=== PATIENT | male | born 1965 | race Caucasian/White ===

== ENCOUNTER 2016-11-30 21:47 | Emergency (ER) | payer OTHER | END 2016-11-30 22:32 | disposition home or self-care (01) | LOC: D.ER 21:47 | DX: K04.7 Periapical abscess without sinus (principal); K08.89 Other specified disorders of teeth and supporting structures; E11.9 Type 2 diabetes mellitus without complications; R68.84 Jaw pain ==

== ENCOUNTER 2017-02-06 06:56 | Emergency (ER) | payer OTHER | END 2017-02-06 08:58 | disposition home or self-care (01) | LOC: D.ER 06:56 | DX: J40 Bronchitis, not specified as acute or chronic (principal); E11.9 Type 2 diabetes mellitus without complications ==

== ENCOUNTER 2017-03-11 11:13 | Emergency (ER) | payer OTHER | END 2017-03-11 11:57 | disposition home or self-care (01) | LOC: D.ER 11:13 | DX: F41.9 Anxiety disorder, unspecified (principal); E11.9 Type 2 diabetes mellitus without complications; I10 Essential (primary) hypertension; F17.200 Nicotine dependence, unspecified, uncomplicated ==

== ENCOUNTER 2017-07-22 15:29 | Emergency (ER) | payer OTHER | END 2017-07-22 16:50 | disposition home or self-care (01) | LOC: D.ER 15:29 | DX: K04.7 Periapical abscess without sinus (principal); K08.89 Other specified disorders of teeth and supporting structures; F17.200 Nicotine dependence, unspecified, uncomplicated ==

== ENCOUNTER 2017-09-19 20:23 | Emergency (ER) | payer OTHER | END 2017-09-19 23:04 | disposition home or self-care (01) | LOC: D.ER 20:23 | DX: J01.90 Acute sinusitis, unspecified (principal); E11.9 Type 2 diabetes mellitus without complications; I10 Essential (primary) hypertension; F17.200 Nicotine dependence, unspecified, uncomplicated ==

== ENCOUNTER 2018-01-24 19:41 | Emergency (ER) | payer OTHER ==
[~2018-01-24] VITALS: Ht 165.1 cm; Wt 77.7 kg
[2018-01-24 19:55] VITALS: Ht 165.1 cm; Wt 77.7 kg
[2018-01-24] MEDS ORDERED: CLEOCIN HCL150 MG PO (19:56)
[2018-01-24] MEDS ORDERED: ROCEPHIN 500 M500 M1 (19:57)
[2018-01-24] MEDS ORDERED: CELEXA20 MG PO (19:57)
[2018-01-24] MEDS ORDERED: BUSPAR10 MG PO (20:09)
[2018-01-24] MEDS ORDERED: GLUCOPHAGE1000 MG PO (20:09)
[2018-01-24] MEDS ORDERED: NEURONTIN 300300 MG (20:10)
[2018-01-24 20:39] LABS: BASOPHILS 0.3 % (0-2); EOSINOPHILS 1.5 % (0-7); HEMATOCRIT 43.1 % (42.0-54.0); IMMATURE GRANULOCYTES 0.3 % (0-5); LYMPHOCYTES 13.4 % (15-50); MCH 30.4 pg (26.0-34.0); MCHC 34.8 g/dL (31.0-37.0); MCV 87.4 fL (80.0-100.0); MONOCYTES 7.2 % (2-11); NEUTROPHILS 77.3 % (40-80); PLATELET COUNT 282 10x3/uL (130-400); RBC 4.93 10x6/uL (4.20-6.10); RDW 12.6 % (11.5-14.5); WBC 15.8 10x3/uL (4.8-10.8)
[2018-01-24 20:57] LABS: ALBUMIN 4.1 g/dL (3.4-5.0); ALKALINE PHOSPHATASE 61 U/L (46-116); ALT (SGPT) 36 U/L (10-68); BILIRUBIN - TOTAL 0.83 mg/dL (0.2-1.3); CALC OSMOLALITY 280 mosm/kg (275-300); CARBON DIOXIDE 29.7 mmol/L (21.0-32.0); CHLORIDE - SERUM 101 mmol/L (98-107); CREATININE - SERUM 1.1 mg/dL (0.6-1.3); POTASSIUM - SERUM 3.5 mmol/L (3.5-5.1); PROTEIN - SERUM 7.9 g/dL (6.4-8.2); SODIUM 140 mmol/L (136-145); UREA NITROGEN 9 mg/dL (7-18); eGFR NON AFRICAN AMERICAN 75 mL/min (90-120)
[2018-01-24 21:00] LABS: GLUCOSE 155 mg/dL (74-106)
[2018-01-24] MEDS ORDERED: KEFLEX500 MG PO (21:54)
[2018-01-24] MEDS ORDERED: CLEOCIN HCL300 MG PO (21:54)
[2018-01-24 22:19] VITALS: BP 142/87
== END 2018-01-24 22:19 | disposition home or self-care (01) ==
LOC: D.ER 19:41
PROVIDERS: Family Medicine
DX: L03.012 Cellulitis of left finger (principal); E11.9 Type 2 diabetes mellitus without complications

== ENCOUNTER 2018-04-29 13:43 | Emergency (ER) | payer OTHER ==
[~2018-04-29] VITALS: Ht 170.2 cm; Wt 74.1 kg
[~2018-04-29 13:43] MED LIST: BUSPAR10 MG PO; CELEXA20 MG PO; CLEOCIN HCL150 MG PO; CLEOCIN HCL300 MG PO; GLUCOPHAGE1000 MG PO; KEFLEX500 MG PO; NEURONTIN 300300 MG; ROCEPHIN 500 M500 M1
[2018-04-29 13:45] VITALS: Ht 170.2 cm; Wt 74.1 kg
[2018-04-29] MEDS ORDERED: BUSPAR10 MG PO ×2 (13:47→16:10)
[2018-04-29] MEDS ORDERED: ZOLOFT25 MG (13:48)
[2018-04-29] MEDS ORDERED: COZAAR50 MG (13:48)
[2018-04-29 14:48] LABS: APPEARANCE CLEAR (CLEAR); BILIRUBIN NEGATIVE (NEGATIVE); COLOR STRAW (YELLOW); GLUCOSE NEGATIVE (NEGATIVE); KETONE NEGATIVE (NEGATIVE); NITRITE NEGATIVE (NEGATIVE); PROTEIN NEGATIVE (NEGATIVE); UROBILINOGEN NORMAL (NORMAL)
[2018-04-29] MEDS ORDERED: VISTARIL25 MG PO (16:10)
[2018-04-29 17:52] LABS: CREATINE KINASE 275 UL (21-232); TROPONIN-I < 0.017 ng/mL (0.000-0.060)
[2018-04-29 18:12] LABS: CKMB 3.4 U/L (0.0-3.6)
[2018-04-29 19:09] VITALS: BP 142/81
== END 2018-04-29 19:09 | disposition home or self-care (01) ==
LOC: D.ER 13:43
PROVIDERS: Emergency Medicine
DX: F41.9 Anxiety disorder, unspecified (principal); E11.9 Type 2 diabetes mellitus without complications; I10 Essential (primary) hypertension; F17.200 Nicotine dependence, unspecified, uncomplicated

== ENCOUNTER 2018-10-29 10:38 | Emergency (ER) | payer OTHER ==
[~2018-10-29] VITALS: Ht 170.2 cm; Wt 72.7 kg
[~2018-10-29 10:38] MED LIST changes: +COZAAR50 MG; +VISTARIL25 MG PO; +ZOLOFT25 MG
[2018-10-29 10:40] VITALS: Ht 170.2 cm; Wt 72.7 kg
[2018-10-29 11:32] LABS: BASOPHILS 0.8 % (0-2); EOSINOPHILS 3.1 % (0-7); HEMATOCRIT 38.9 % (42.0-54.0); HEMOGLOBIN 13.7 g/dL (13.5-17.5); IMMATURE GRANULOCYTES 0.3 % (0-5); LYMPHOCYTES 21.4 % (15-50); MCH 29.8 pg (26.0-34.0); MCHC 35.2 g/dL (31.0-37.0); MCV 84.6 fL (80.0-100.0); MEAN PLATELET VOLUME 9.5 fL (7.4-10.4); MONOCYTES 8.3 % (2-11); NEUTROPHILS 66.1 % (40-80); WBC 6.5 10x3/uL (4.8-10.8)
[2018-10-29 11:33] LABS: PLATELET COUNT 358 10x3/uL (130-400)
[2018-10-29 12:02] LABS: ALBUMIN 3.8 g/dL (3.4-5.0); ALKALINE PHOSPHATASE 60 U/L (46-116); ALT (SGPT) 32 U/L (10-68); BILIRUBIN - TOTAL 0.65 mg/dL (0.2-1.3); CALC OSMOLALITY 285 mosm/kg (275-300); CALCIUM 9.4 mg/dL (8.5-10.1); CARBON DIOXIDE 27.8 mmol/L (21.0-32.0); CHLORIDE - SERUM 103 mmol/L (98-107); CREATININE - SERUM 0.8 mg/dL (0.6-1.3); GLUCOSE 149 mg/dL (74-106); PROTEIN - SERUM 7.4 g/dL (6.4-8.2); SODIUM 143 mmol/L (136-145); TROPONIN-I < 0.017 ng/mL (0.000-0.060); UREA NITROGEN 8 mg/dL (7-18); eGFR NON AFRICAN AMERICAN > 90 mL/min (90-120)
[2018-10-29 12:06] LABS: POTASSIUM - SERUM 2.9 mmol/L (3.5-5.1)
[2018-10-29] MEDS ORDERED: K-TAB10 MEQ PO (12:09)
[2018-10-29 12:50] VITALS: BP 162/95
== END 2018-10-29 12:29 | disposition home or self-care (01) ==
LOC: D.ER 10:38
PROVIDERS: Family Medicine
DX: R53.1 Weakness (principal); M62.838 Other muscle spasm; E87.6 Hypokalemia

== ENCOUNTER 2018-11-25 17:46 | Emergency (ER) | payer OTHER ==
[~2018-11-25] VITALS: Ht 170.2 cm; Wt 70.5 kg
[~2018-11-25 17:46] MED LIST changes: +K-TAB10 MEQ PO
[2018-11-25 17:53] VITALS: Ht 170.2 cm; Wt 70.5 kg
[2018-11-25] MEDS ORDERED: DOXYCYCLINE HY100 M2 PO (18:58)
[2018-11-25] MEDS ORDERED: TORADOL10 MG PO (18:58)
[2018-11-25 19:32] VITALS: BP 128/56
== END 2018-11-25 19:33 | disposition home or self-care (01) ==
LOC: D.ER 17:46
DX: L02.412 Cutaneous abscess of left axilla (principal)

== ENCOUNTER 2018-12-13 08:32 | Emergency (ER) | payer OTHER ==
[~2018-12-13] VITALS: Ht 170.2 cm; Wt 71.8 kg
[~2018-12-13 08:32] MED LIST changes: +DOXYCYCLINE HY100 M2 PO; +TORADOL10 MG PO
[2018-12-13 08:37] VITALS: Ht 170.2 cm; Wt 71.8 kg
[2018-12-13] MEDS ORDERED: KEFLEX500 MG PO (09:23)
[2018-12-13 09:45] VITALS: BP 101/61
== END 2018-12-13 10:20 | disposition home or self-care (01) ==
LOC: D.ER 08:32
DX: L02.412 Cutaneous abscess of left axilla (principal); K04.7 Periapical abscess without sinus; K02.9 Dental caries, unspecified; E11.9 Type 2 diabetes mellitus without complications; I10 Essential (primary) hypertension

== ENCOUNTER 2019-04-14 07:26 | Emergency (ER) | payer OTHER ==
[~2019-04-14] VITALS: Ht 170.2 cm; Wt 70.9 kg
[2019-04-14 07:33] VITALS: Ht 170.2 cm; Wt 70.9 kg
[2019-04-14 08:05] VITALS: BP 128/72
== END 2019-04-14 08:06 | disposition home or self-care (01) ==
LOC: D.ER 07:26
DX: S83.92XA Sprain of unspecified site of left knee, initial encounter (principal); W22.8XXA Striking against or struck by other objects, initial encounter; Y93.9 Activity, unspecified; Y92.9 Unspecified place or not applicable; E11.9 Type 2 diabetes mellitus without complications; Z79.84 Long term (current) use of oral hypoglycemic drugs; I10 Essential (primary) hypertension

== ENCOUNTER 2019-04-25 17:09 | Emergency (ER) | payer OTHER ==
[~2019-04-25] VITALS: Ht 170.2 cm; Wt 70.5 kg
[2019-04-25 17:22] VITALS: Ht 170.2 cm; Wt 70.5 kg
[2019-04-25] MEDS ORDERED: BUSPAR10 MG PO (18:49)
[2019-04-25 19:56] VITALS: BP 172/108
== END 2019-04-25 19:43 | disposition home or self-care (01) ==
LOC: D.ER 17:09
DX: F43.0 Acute stress reaction (principal); F41.9 Anxiety disorder, unspecified; E11.9 Type 2 diabetes mellitus without complications; Z79.84 Long term (current) use of oral hypoglycemic drugs; I10 Essential (primary) hypertension; Z72.0 Tobacco use

== ENCOUNTER 2019-08-21 11:43 | Emergency (ER) | payer OTHER ==
[~2019-08-21] VITALS: Ht 170.2 cm; Wt 70.5 kg
[2019-08-21 11:56] VITALS: Ht 170.2 cm; Wt 70.5 kg
[2019-08-21] MEDS ORDERED: BUSPAR 15 MG TA15 MG PO (11:58)
[2019-08-21] MEDS ORDERED: GABAPENTIN100 MG PO (11:58)
[2019-08-21] MEDS ORDERED: GLUCOPHAGE500 MG PO (11:58)
[2019-08-21] MEDS ORDERED: PENICILLIN V P500 MG PO (12:33)
[2019-08-21] MEDS ORDERED: TYLENOL #4 W/CO1 TAB PO (12:33)
[2019-08-21 13:32] VITALS: BP 137/87
[2019-08-21] MEDS ORDERED: CLINDAMYCIN HC300 MG PO (13:39)
[2019-08-21] MEDS ORDERED: HYDROCODON-ACE1 EAC7 PO (13:41)
== END 2019-08-21 13:46 | disposition home or self-care (01) ==
LOC: D.ER 11:43
DX: K08.89 Other specified disorders of teeth and supporting structures (principal); L03.211 Cellulitis of face; E11.9 Type 2 diabetes mellitus without complications; I10 Essential (primary) hypertension; Z72.0 Tobacco use; Z79.84 Long term (current) use of oral hypoglycemic drugs

== ENCOUNTER 2020-10-29 19:02 | Emergency (ER) | payer OTHER ==
[~2020-10-29] VITALS: Ht 170.2 cm; Wt 65.9 kg
[~2020-10-29 19:02] MED LIST changes: +BUSPAR 15 MG TA15 MG PO; +CLINDAMYCIN HC300 MG PO; +GABAPENTIN100 MG PO; +GLUCOPHAGE500 MG PO; +HYDROCODON-ACE1 EAC7 PO; +PENICILLIN V P500 MG PO; +TYLENOL #4 W/CO1 TAB PO
[2020-10-29 19:11] VITALS: Ht 170.2 cm; Wt 65.9 kg
[2020-10-29 19:32] LABS: BASOPHILS 1.1 % (0-2); EOSINOPHILS 4.2 % (0-7); HEMATOCRIT 41.2 % (42.0-54.0); HEMOGLOBIN 13.6 g/dL (13.5-17.5); LYMPHOCYTES 21.9 % (15-50); MCH 29.2 pg (26.0-34.0); MCV 88.4 fL (80.0-100.0); MEAN PLATELET VOLUME 7.9 fL (7.4-10.4); NEUTROPHILS 62.8 % (40-80); PLATELET COUNT 375 10x3/uL (130-400); RBC 4.66 10x6/uL (4.20-6.10); RDW 13.5 % (11.5-14.5)
[2020-10-29 19:39] LABS: CALC OSMOLALITY 280 mosm/kg (275-300); CALCIUM 8.8 mg/dL (8.5-10.1); CARBON DIOXIDE 28.8 mmol/L (21.0-32.0); CHLORIDE - SERUM 104 mmol/L (98-107); GLUCOSE 110 mg/dL (74-106); POTASSIUM - SERUM 3.6 mmol/L (3.5-5.1); SODIUM 140 mmol/L (136-145); UREA NITROGEN 16 mg/dL (7-18); eGFR NON AFRICAN AMERICAN 83 mL/min (90-120)
[2020-10-29 19:55] LABS: ALBUMIN 3.9 g/dL (3.4-5.0); ALKALINE PHOSPHATASE 60 U/L (30-120); ALT (SGPT) 36 U/L (10-68); CKMB 10.8 U/L (0.0-3.6); CREATINE KINASE 486 UL (21-232); MAGNESIUM - SERUM 1.8 mg/dL (1.8-2.4); PROTEIN - SERUM 8.1 g/dL (6.4-8.2)
[2020-10-29 20:01] LABS: TROPONIN-I < 0.017 ng/mL (0.000-0.060)
[2020-10-29] MEDS ORDERED: PENICILLIN V P500 MG PO (21:15)
[2020-10-29 21:30] LABS: BILIRUBIN NEGATIVE (NEGATIVE); KETONE NEGATIVE mg/dL (< 1+); NITRITE NEGATIVE (NEGATIVE); PH 5.5 (5.0-8.0); UROBILINOGEN NORMAL mg/dL (< 2)
[2020-10-29 22:48] VITALS: BP 148/90
== END 2020-10-29 22:50 | disposition home or self-care (01) ==
LOC: D.ER 19:02
PROVIDERS: Emergency Medicine
DX: T67.5XXA Heat exhaustion, unspecified, initial encounter (principal); K02.9 Dental caries, unspecified; E11.9 Type 2 diabetes mellitus without complications; I10 Essential (primary) hypertension; J44.9 Chronic obstructive pulmonary disease, unspecified; Z79.84 Long term (current) use of oral hypoglycemic drugs; Z72.0 Tobacco use